=== PATIENT | female | born 1985 | race Caucasian/White ===

== ENCOUNTER → 2019-12-24 13:22 | Outpatient (CLI) | payer BC, SELFPAY ==
--- NOTE | ~2019-12-24 | US_ITS ---
EXAMINATION: US pelvic complete DATE: 12/24/2019 13:54 INDICATION: Pelvic pain. Irregular excessive menses. Comparison:No prior studies for comparison. TECHNIQUE: Multiple transabdominal and endovaginal sonographic images of the pelvis performed. FINDINGS: The uterus measures 9.5 x 4.9 x 6.3 cm. The endometrial complex measures 3 mm. The right ovary measures 2.9 x 1.5 x 1.6 cm and the left ovary measures 2.5 x 3.6 x 2.4 cm. There ar e small follicles in each ovary. There is no free fluid in the pelvis. There are no abnormal masses seen on either side. IMPRESSION: 1. Unremarkable pelvic ultrasound. Reviewed, dictated and finalized at location A.
== END ==
PROVIDERS: PCP Nurse Practitioner Family; Visit Provider Obstetrics & Gynecology
DX: N93.8 Other specified abnormal uterine and vaginal bleeding (principal)
CPT/HCPCS: 76856

== ENCOUNTER 2019-12-25 19:57 | Emergency (ER) | payer BC, SELFPAY ==
[2019-12-25 19:58] VITALS: BP 80/45; PULSE 61; RESP 17; TEMP 37; O2SAT 94
--- NOTE | 2019-12-25 20:30 | ED.GENADULT ---
HPI - General Adult General Chief complaint: Wound/Laceration <Severo Montgomery PA-C - Last Filed: 12/25/19 20:34> Stated complaint: lac to hand <Severo Montgomery PA-C - Last Filed: 12/25/19 20:34> Time Seen by Provider: 12/25/19 20:07 <Severo Montgomery PA-C - Last Filed: 12/25/19 20:34> Source: patient <CARMEN Calvin Last Filed: 12/25/19 20:34> Mode of arrival: ambulatory <Severo Montgomery PA-C - Last Filed: 12/25/19 20:34> Limitations: no limitations <Severo Montgomery PA-C - Last Filed: 12/25/19 20:34> History of Present Illness HPI narrative: Patient is a 34-year-old female who presents with a laceration between the second and third digits of the hand involving the webspace patient notes mild aching pain worse with activity and movement with some numbness of the middle digit patient notes the injury occurred just prior to arrival patient denies other injuries or complaints presents per private vehicle <Severo Montgomery PA-C - Last Filed: 12/25/19 20:34> Related Data Allergies/adverse reactions: Allergies Allergy/AdvReac Type Severity Reaction Status Date / Time latex Allergy Unknown Verified 07/11/18 14:39 <Severo Montgomery PA-C - Last Filed: 12/25/19 20:34> Review of Systems Review of Systems: All systems reviewed & are unremarkable except as noted in HPI and below <Severo Montgomery PA-C - Last Filed: 12/25/19 20:34> [facility] Family History Family History: Family History (Updated 07/11/18 @ 14:48 by DOCTOR UNKNOWN) Mother Hypertension Asthma Patient's mother is in good health Father Hypertension, Onset Age: 60 Patient's father is in good health Family history of allergic disorder Family history of diabetes mellitus in first degree relative Family history of malignant neoplasm of esophagus, Onset Age: 60 Diabetes mellitus, Onset Age: 60 <Severo Montgomery PA-C - Last Filed: 12/25/19 20:34> Social History Social History: Social History Smoking status: Heavy tobacco smoker Alcohol intake: never <Severo Montgomery PA-C - Last Filed: 12/25/19 20:34> Exam Narrative: Exam Narrative: GENERAL: Well-appearing, well-nourished, and in no acute distress. HEAD: Normocephalic, atraumatic. EYES: PERRLA and EOMI. ENT: Nares clear, no rhinorrhea or epistaxis. Mucous membranes moist. EXTREMITIES: Normal range of motion. No edema. SKIN: Warm, dry, no rash. 1 cm laceration between the second and third digits involving the webspace NEURO: No focal deficits. Alert and oriented x3. Neurovascularly intact PSYCH: Normal mood and affect. <Severo Montgomery PA-C - Last Filed: 12/25/19 20:34> Course Course Emergency Course: Patient in the room aware of case findings treatment plan and diagnosis agreeing to follow-up as directed felt appropriate for outpatient reevaluation <Severo Montgomery PA-C - Last Filed: 12/25/19 20:34> Vital Signs Vital signs: Vital Signs Temperature 37.0 C 12/25/19 19:58 Pulse Rate 61 12/25/19 19:58 Respiratory Rate 17 12/25/19 19:58 Blood Pressure 80/45 L 12/25/19 19:58 Pulse Oximetry 94 12/25/19 19:58 Temperature 37.0 C 12/25/19 19:58 Pulse Rate 66 12/25/19 20:35 Respiratory Rate 18 12/25/19 20:35 Blood Pressure 114/82 12/25/19 20:35 Pulse Oximetry 93 12/25/19 20:35 <Severo Montgomery PA-C - Last Filed: 12/25/19 20:34> Vital Signs Temperature 37.0 C 12/25/19 19:58 Pulse Rate 61 12/25/19 19:58 Respiratory Rate 17 12/25/19 19:58 Blood Pressure 80/45 L 12/25/19 19:58 Pulse Oximetry 94 12/25/19 19:58 Temperature 37.0 C 12/25/19 19:58 Pulse Rate 66 12/25/19 20:35 Respiratory Rate 18 12/25/19 20:35 Blood Pressure 114/82 12/25/19 20:35 Pulse Oximetry 93 12/25/19 20:35 <Roberto Paniagua MD - Last Filed: 12/27/19 07:05> Procedures Asho
[2019-12-25 20:35] VITALS: BP 114/82; PULSE 66; RESP 18; O2SAT 93
== END 2019-12-25 20:57 | disposition home or self-care (01) ==
PROVIDERS: Emergency Provider Emergency Medicine; PCP Nurse Practitioner Family
DX: S61.412A Laceration without foreign body of left hand, initial encounter (principal); W26.0XXA Contact with knife, initial encounter
CPT/HCPCS: 12001; 99282

== ENCOUNTER 2020-06-15 07:48 | Outpatient (CLI) | payer BC, SELFPAY | END 2020-06-15 07:49 | disposition home or self-care (01) | LOC: ANHSURGERY 07:52 | PROVIDERS: PCP Nurse Practitioner Family; Visit Provider Obstetrics & Gynecology | DX: N93.9 Abnormal uterine and vaginal bleeding, unspecified (principal); Z01.818 Encounter for other preprocedural examination | CPT/HCPCS: 36415; 86850; 86900; 86901 ==

== ENCOUNTER → 2020-06-16 00:25 | Outpatient (CLI) | payer BC, SELFPAY ==
[2020-06-16 18:32] LABS: SARS-CoV-2 RNA PCR Negative
== END ==
PROVIDERS: PCP Nurse Practitioner Family; Visit Provider Obstetrics & Gynecology
DX: Z01.812 Encounter for preprocedural laboratory examination (principal); Z20.822 Contact with and (suspected) exposure to COVID-19
CPT/HCPCS: C9803; U0003; U0005

== ENCOUNTER 2020-06-19 00:30 | Day surgery (SDC) | payer BC, SELFPAY ==
[2020-06-12 10:54] VITALS: BMI 21.4
--- NOTE | 2020-06-18 10:19 | WPDANESEPPF ---
Anes - Initial Pre Proc Eval Procedure: Operation Date: 06/19/20 12:00 Proposed Procedures p Laparoscopic Assisted Vaginal Hysterectomy - Alcon Antonio MD Date/Time: 06/18/20 10:19 Surgeon: Alcon Antonio MD Pre Op Diagnosis: Abn Uterine Bleeding Patient Data Age: 35 Gender: F Height: 1.78 m Weight: 68 kg Allergies Allergy/AdvReac Type Severity Reaction Status Date / Time latex Allergy Severe Hives Verified 06/19/20 10:17 Home Medications Medication Instructions Recorded Confirmed Type albuterol sulfate 1 inh INHALATION Q4H PRN 06/10/20 06/19/20 History calcium 1,200 mg PO DAILY 06/10/20 06/19/20 History cholecalciferol (vitamin D3) 125 mcg PO DAILY 06/10/20 06/19/20 History [Vitamin D3] cyclobenzaprine 10 mg PO TID PRN 06/10/20 06/19/20 History escitalopram oxalate 20 mg PO DAILY 06/10/20 06/19/20 History lamotrigine 50 mg PO BID 06/10/20 06/19/20 History vitamin B complex [B 5,000 tablet PO DAILY 06/10/20 06/19/20 History Complex-Vitamin B12] Patient hx anesthesia problems: none Family hx anesthesia problems: none PMFSH Past Medical History Medical History (Updated 06/19/20 @ 08:51 by Alcon Antonio MD) Abnormal uterine bleeding (AUB) Anxiety Asthma albuterol PRN Bipolar disorder Depression Hypothyroidism CHIDI (obstructive sleep apnea) non compliance with CPAP Surgical History Surgical History History of History of cholecystectomy 2011 History of tubal ligation Family History Family History Mother Hypertension Asthma Patient's mother is in good health Father Hypertension, Onset Age: 60 Patient's father is in good health Family history of allergic disorder Family history of diabetes mellitus in first degree relative Family history of malignant neoplasm of esophagus, Onset Age: 60 Diabetes mellitus, Onset Age: 60 Social History Social History Smoking packs per day: 0.25 Smoking cigarettes per day: 5.0 Years smoked: 8 Smoking pack-years: 2.00 Smoking status: Current every day smoker Tobacco type: cigarettes Second hand tobacco smoke exposure: Yes Alcohol intake: former Alcohol use details: SOCIAL - NOTHING IN PAST MONTHS Substance use: current Substance use type: marijuana Other substance usage details: VAPE PEN - 2-3 TIMES/WEEK Last use: 06/07/20 Living arrangements: with family Spiritual care concerns: No Anes - Eval Final PreProcedure Day of Procedure 06/18/20 10:19 Patient weight: normal Heart: regular rate and rhythm Lungs: clear to auscultation and normal air movement Airway: Mallampati scale class II Neurological: alert and oriented Last oral intake: >/= 8 hours ASA classification: III Emergent: no Anesthetic plan: proceed Anesthesia type and monitoring: general ETT and standard monitoring Informed Consent: The patient's anesthetic plan and its attendant risks and benefits were discussed with the patient/family/POA. Questions were solicited and answers provided to the satisfaction of the patient/family/POA.
[2020-06-19] VITALS (9 sets, daily range): BP systolic 101–131; BP diastolic 59–79; PULSE 67–89; RESP 13–19; TEMP 36.2–36.7; O2SAT 95–100
--- NOTE | 2020-06-19 08:46 | PM.IMHP ---
H&P: HPI History of Present Illness Date/Time: 06/19/20 08:46 35 y/o A1 presented to the office with abnormal uterine bleeding that she feels is worsening even with progesterone therapy. Patient reports irregular bleeding for a past few months. Patient underwent endometrial biopsy which was negative for malignancy. Chief Complaint: irregular bleeding Review of Systems Review of Systems: All systems reviewed & are unremarkable except as noted in HPI and below PMFSH Past Medical History Medical History Abnormal uterine bleeding (AUB) Anxiety Asthma albuterol PRN Bipolar disorder Depression Hypothyroidism CHIDI (obstructive sleep apnea) non compliance with CPAP Surgical History Surgical History History of History of cholecystectomy 2010 History of tubal ligation Family History Family History Mother Hypertension Asthma Patient's mother is in good health Father Hypertension, Onset Age: 60 Patient's father is in good health Family history of allergic disorder Family history of diabetes mellitus in first degree relative Family history of malignant neoplasm of esophagus, Onset Age: 60 Diabetes mellitus, Onset Age: 60 Social History Social History Smoking packs per day: 0.25 Smoking cigarettes per day: 5.0 Years smoked: 8 Smoking pack-years: 2.00 Smoking status: Current every day smoker Tobacco type: cigarettes Second hand tobacco smoke exposure: Yes Alcohol intake: former Alcohol use details: SOCIAL - NOTHING IN PAST MONTHS Substance use: current Substance use type: marijuana Other substance usage details: VAPE PEN - 2-3 TIMES/WEEK Last use: 06/07/20 Living arrangements: with family Spiritual care concerns: No Meds Home Medications and Allergies Home Medications Medication Instructions Recorded Confirmed Type albuterol sulfate 1 inh INHALATION Q4H PRN 06/10/20 06/19/20 History calcium 1,200 mg PO DAILY 06/10/20 06/19/20 History cholecalciferol (vitamin D3) 125 mcg PO DAILY 06/10/20 06/19/20 History [Vitamin D3] cyclobenzaprine 10 mg PO TID PRN 06/10/20 06/19/20 History escitalopram oxalate 20 mg PO DAILY 06/10/20 06/19/20 History lamotrigine 50 mg PO BID 06/10/20 06/19/20 History vitamin B complex [B 5,000 tablet PO DAILY 06/10/20 06/19/20 History Complex-Vitamin B12] Allergies Allergy/AdvReac Type Severity Reaction Status Date / Time latex Allergy Severe Hives Verified 06/19/20 10:17 Exam Const: General: healthy appearing Orientation/consciousness: patient oriented x3 Resp: Auscultation: clear to auscultation bilaterally Cardio: Rate: regular rate Rhythm: regular rhythm GI: GI Palp: Yes Soft to palpation : Bimanual exam- vagina & uterus: normal palpation, uterine mobility normal and boggy Assessment and Plan Assessment and plan (1) Abnormal uterine bleeding (AUB): Code(s): N93.9 - Abnormal uterine and vaginal bleeding, unspecified Status: Acute Assessment and Plan: schedule for a laparoscopic assisted vaginal hysterectomy. risk and benefits reviewed with patient in detail including bleeding, infection, trauma, and damage to surrounding organs. Patient desires to proceed with surgery.
[2020-06-19] MEDS: ACETAMINOPHEN 500 MG TABLET 1000 MG PO (10:28)
[2020-06-19] MEDS: LACTATED RINGERS 1,000 ML 30 ML IV CONT ×2 (11:20→15:33)
[2020-06-19] MEDS: KETOROLAC 15 MG/ML VIAL (*BKC) IV PUSH (11:25)
--- NOTE | 2020-06-19 11:54 | SUR.PREOP ---
1130-PT AND AWARE SURGEON IS DELAYED BY PREVIOUS SURGEON WITH ESTIMATED OR TIME NOW 1245.
--- NOTE | 2020-06-19 12:35 | WPDHPUPDATE1 ---
History and Physical Update Update Date/Time: 06/19/20 12:35 History and Physical has been reviewed, including an updated exam of the patient. There are NO changes in the patient's condition. Risks, benefits, and alternatives have been discussed and questions answered. Patient agrees to proceed with procedure.
--- NOTE | 2020-06-19 13:18 | SUR.PREOP ---
1315-PT AND AWARE ADDITONAL DELAY OF UNDETERMINED AMT OF TIME.
[2020-06-19] MEDS: ceFAZolin 2 GM/D5W 50 ML 2 GM/50 ML BAG IVPB (13:29)
[2020-06-19] MEDS: LIDO 1%/EPINEPHRINE/PF 1:200,000 30 ML VIAL 10 ML XX (14:19)
--- NOTE | 2020-06-19 15:26 | PM.PROC ---
Procedure Note - Detailed Date of procedure: 06/21/20 Pre-op diagnosis: Abn Uterine Bleeding Post-op diagnosis: same Procedure performed: LAVH and lysis of adhesions Description of procedure: After anesthesia was found be adequate patient was placed in dorsal lithotomy position prepped and draped in usual manner for laparoscopic procedure. A speculum was placed the vagina. A single-tooth tenaculum was utilized to grasp the anterior lip of the cervix. The uterus was sounded to 10cm. A uterine manipulator was placed into the cervix. Patel was already in place. The speculum was removed attention was then turned to the abdomen. 5Cc of lidocaine with epi was injected in the infraumbilical fold in a horizontal incision was made through which a Veress needle was inserted into the abdominal cavity. Aspiration was negative therefore the abdomen was insufflated with carbon dioxide. After adequate insufflation Veress needle was removed and a 5mm trocar was introduced through the umbilical fold under direct visualization with the scope. Mild arm minimal adhesions were noted to the abdominal wall from the peritoneum in the uterus. A 5mm skin incision was made and a 5mm trocar was introduced into the abdomen for instrumentation on the right and left side of the abdomen. Evaluation of the pelvis revealed a body enlarged and irregular shaped uterus. The fallopian tubes had been previously interrupted surgically. Ovaries appeared normally vaginally and the cul-de-sac was clear the ureters were noted to be deep in the pelvis at this time the right cornu was grasped and the right ovarian uterine ligament round ligaments were doubly clamped doubly coagulated with the Harmonic scalpel. Same procedure was performed on the left with doubly clamping the uterine ovarian ligament round ligaments. The bladder flap was created with blunt and coagulation dissection. The remainder of the uterine vessels and anterior and posterior leaves of the broad ligament and away and transected and coagulated in a serial fashion down to the uterine arteries. The surgery was then turned to the vagina. In which a weighted speculum was placed into the vagina and the anterior and posterior lip of the cervix was grasped with single-tooth tenaculum. The cervix was injected circumferentially with 1% lidocaine with epinephrine. And a circumferential incision was made in the vaginal tissue. The posterior cul-de-sac was entered with sharp and blunt dissection. And a longer weighted speculum was placed into the vagina. The bladder or anterior portion of the vagina was then dissected off the cervix. The right uterosacral ligament was clamped transected and suture ligated with 0 Vicryl suture. The left uterosacral ligament was also clamped and transected with 0 Vicryl suture. The parametrial tissue and the uterine arteries were clamped transected and suture ligated with 0 Vicryl suture. The uterus was removed from the vagina. The pedicles were examined for hemostasis the vaginal close was then closed in a running locked fashion with 0 Vicryl suture with also closing the uterosacral ligaments in the center. Vagina was packed attention was then turned to the abdomen again and reinsufflated hemostasis was noted at the pedicles. The trocars were removed and all gas was escaped from the abdomen and the incisions were closed with 4 Vicryl suture. Sponge lap and needle counts were correct x2 patient tolerated this procedure well. patient was taken to recovery room in stable condition. Anesthesia: GLMA Surgeon: Alcon Antonio MD Estimated blood loss (mL): 200 IV fluids (mL): 2,000 Urine output (mL): 100 Drains: Yes Packing: Yes Pathology: yes Complications: None Condition: stable Disposition: PACU Findings: enlarged boggy uterus and adhesions
--- NOTE | 2020-06-19 16:54 | PC.NURSE ---
This patient, Duke Ruth, was received from PACU on 06/19/20 at 1654. Patient/family oriented to unit policies and routines
[2020-06-19] MEDS: KETOROLAC 30 MG/ML VIAL (*BKC) IV PUSH (18:29)
[2020-06-19] MEDS: LACTATED RINGERS 1,000 ML 125 ML IV CONT (18:30)
[2020-06-19] MEDS: IBUPROFEN 600 MG TABLET PO (21:31)
[2020-06-19] MEDS: HYDROcodone/acetaminophen (*CRX) 5-325 MG TABLET 1 TAB PO (23:18)
[2020-06-20] MEDS: IBUPROFEN 600 MG TABLET PO ×2 (04:33→12:38)
[2020-06-20] MEDS: HYDROcodone/acetaminophen (*CRX) 5-325 MG TABLET 1 TAB PO ×2 (04:33→12:37)
[2020-06-20 04:40] VITALS: BP 106/69; PULSE 72; RESP 16; TEMP 36.4; O2SAT 98
[2020-06-20] MEDS: ESCITALOPRAM OXALATE 10 MG TABLET 20 MG PO (08:49)
[2020-06-20] MEDS: lamoTRIgine 25 MG TABLET 50 MG PO (08:49)
[2020-06-20 09:00] VITALS: BP 115/72; PULSE 66; PULSE 72; RESP 14; RESP 16; TEMP 36.2; O2SAT 100; O2SAT 98
--- NOTE | 2020-06-20 09:00 | WPDANESPN ---
Anes - Prog Note Post-Op Date/Time: 06/20/20 09:00 Cardiovascular status: normal Respiratory status: normal Airway patency: baseline Mental status: baseline Post-Op hydration status: normal Vital Signs: Last Vital Signs Temp 36.4 C L 06/20/20 04:40 Pulse 72 06/20/20 04:40 Resp 16 06/20/20 04:40 BP 106/69 06/20/20 04:40 Pulse Ox 98 06/20/20 04:40 Pain Score (VAS): 5 I/O: Intake & Output 06/19/20 06/20/20 06/20/20 23:59 07:59 15:59 Intake Total 900 740 Output Total 1670 1000 Balance -770 -260 Post-procedural complaints: none Patient Feedback: Patient satisfied with anesthetic care.
== END 2020-06-20 13:00 | disposition home or self-care (01) ==
LOC: ANHSURGERY 09:57 → ANHOB2 18:19
PROVIDERS: PCP Nurse Practitioner Family; Visit Provider Obstetrics & Gynecology
PROC: 0UT9FZZ Resection of Uterus, Via Natural or Artificial Opening With Percutaneous Endoscopic Assistance (ICD-10-PCS; CPT 58550; principal; 2020-06-19 12:00)
DX: N93.9 Abnormal uterine and vaginal bleeding, unspecified (principal); N73.6 Female pelvic peritoneal adhesions (postinfective); N80.0 Endometriosis of uterus; Z79.51 Long term (current) use of inhaled steroids; F31.9 Bipolar disorder, unspecified; E03.9 Hypothyroidism, unspecified; G47.33 Obstructive sleep apnea (adult) (pediatric); F17.210 Nicotine dependence, cigarettes, uncomplicated; F12.90 Cannabis use, unspecified, uncomplicated; F41.8 Other specified anxiety disorders
CPT/HCPCS: 58550; 88307; 99199; A9270; J0330; J0690; J1100; J1200; J1885; J2250; J2405; J2704; J3010; J7120

== ENCOUNTER 2023-02-07 19:45 | Emergency (ER) | payer SELFPAY ==
[2023-02-07 20:07] VITALS: BP 115/70; PULSE 96; RESP 14; TEMP 36.6; O2SAT 100
== END 2023-02-07 20:07 | disposition left against medical advice (07) ==
PROVIDERS: PCP Nurse Practitioner Family
DX: R40.4 Transient alteration of awareness (principal)
CPT/HCPCS: 99199